=== PATIENT | female | born 2000 | race Caucasian/White ===

== ENCOUNTER 2021-04-16 21:26 | Emergency (ER) | payer OTHER, SELFPAY ==
--- NOTE | ~2021-04-16 | CT_ITS ---
EXAMINATION: CT abdomen pelvis w con INDICATION: Lower abdominal pain TECHNIQUE: Computed tomographic images of the abdomen and pelvis were obtained after the administrati on of 100 cc of Omnipaque 350 intravenous contrast. The dose-length product (DLP) was 686.31 mGy-cm. Automated exposure control and iterative reconstruction technique were employed. COMPARISON: None available FINDINGS: Minimal dependent atelectasis is present in the lung bases. The heart size is normal. The l iver, spleen, pancreas, gallbladder, and adrenal glands are normal. The kidneys are unremarkable. No pathologically enlarged abdominal or pelvic lymph nodes are identified. There is no free intraperiton eal gas or evidence of bowel obstruction. The appendix is normal. There is trace free fluid in the pe lvis, likely physiologic. A moderate volume of colonic stool is present. There is mild fat stranding surrounding near the apex of the urinary bladder. The visualized osseous structures are unremarkable. IMPRESSION: 1. Mild fat stranding near the urinary bladder apex which could reflect cystitis but is nonspecific. Reviewed, dictated and finalized at location A. [facility]ENDER IMPRESSION: 1. Mild fat stranding near the urinary bladder apex which could reflect cystiti s but is nonspecific.
[2021-04-16 21:34] VITALS: BP 134/86; PULSE 88; RESP 16; TEMP 37.1; O2SAT 97
--- NOTE | 2021-04-16 21:54 | ED.ABDPAIN ---
HPI - Abdominal Pain General Chief Complaint: Abdominal Pain Stated Complaint: Abd pain Time Seen by Provider: 04/16/21 21:45 Source: patient and RN notes reviewed Mode of arrival: ambulatory Limitations: no limitations History of Present Illness HPI narrative: This is a 21 year old female who presents for evaluation of mid upper abdominal pain for 2 weeks. Her pain has been intermittent throbbing pain that occurs after eating. Her pain usually last 1-2 hours but tonight it has lasted longer. She was evaluated by her PCP a week ago and she was started on sucralfate and omeprazole. Her pain has not improved. She denies associated nausea, vomiting, or diarrhea. She has not had a bowel movement since Monday but this is not abnormal for her. She is unsure of fever but she states she is hot and cold. She rates her pain as 9/10. Related Data Home Medications Medication Instructions Recorded Confirmed omeprazole 04/16/21 sucralfate 04/16/21 Allergies Allergy/AdvReac Type Severity Reaction Status Date / Time No Known Allergies Allergy Verified 04/16/21 21:40 Review of Systems Review of Systems: All systems reviewed & are unremarkable except as noted in HPI and below PMFSH Past Medical History Medical History (Updated 04/17/21 @ 01:55 by Joi Murphy MD) Patient denies medical problems Surgical History Surgical History (Updated 04/16/21 @ 21:57 by Joi Murphy MD) No pertinent past surgical history Social History Social History (Updated 04/16/21 @ 21:58 by Joi Murphy MD) Smoking status: Never smoker Substance use: never Exam Const: General: no acute distress and alert Orientation/consciousness: patient oriented x3 Eyes: EOM: EOMs intact bilaterally Chest: Chest palpation & inspection: normal inspection of the chest Resp: Effort & Inspection: normal respiratory effort and no retractions Auscultation: clear to auscultation bilaterally Cardio: Rate: regular rate Rhythm: regular rhythm Heart sounds: no murmurs GI: GI Palp: Yes Soft to palpation, Yes Tenderness to palpation present (GI) (epigastric), No Guarding due to palpation present (GI) and No Rigid due to palpation Auscultation: normal bowel sounds Skin: General skin exam: normal color Rashes: no rashes Neuro: General: patient oriented x3, moves all extremities and CN's II-XI intact bilaterally Extrem: General: normal to inspection Psych: Mental Status: mental status grossly normal Affect: normal affect Course Reevaluation(s) Reevaluation #1: PAtient was given GI cocktail on arrival, but she states this did not improve pain. Ct was performed. It shows moderate stool burden. I Discussed cT results with patient. She will talk to PCP about GI referral. She will also start bowel regimen to help constipation. Date: 04/17/21 Time: 01:51 Vital Signs Vital signs: Vital Signs Temperature 98.7 F 04/16/21 21:34 Pulse Rate 88 04/16/21 21:34 Respiratory Rate 16 04/16/21 21:34 Blood Pressure 134/86 04/16/21 21:34 Pulse Oximetry 97 04/16/21 21:34 Temperature 98.7 F 04/16/21 21:34 Pulse Rate 62 04/17/21 01:47 Respiratory Rate 18 04/16/21 23:09 Blood Pressure 134/86 04/16/21 21:34 Pulse Oximetry 100 04/17/21 01:47 MDM - Abdominal Pain Lab Data Attestation: I reviewed the patient's lab results. Result diagrams: 04/16/21 21:58 04/16/21 21:58 Labs: Lab Results 04/16/21 04/16/21 04/16/21 Range/Units 21:58 21:58 22:40 WBC 5.7 (4.5-10.0) K/mm3 RBC 4.40 (4.2-5.4) M/mm3 Hgb 12.9 (12.0-15.0) g/dL Hct 38.8 (37.0-47.0) % MCV 88.2 (80-100) fl MCH 29.3 (26-34) pg MCHC 33.2 (32-36) g/dl RDW 12.1 (11.5-14.5) % Plt Count 233 (150-375) k/mm3 MPV 9.9 (7.4-10.4) fl Immature Gran % (Auto) 0.2 (0-0.5) % Neut % (Auto) 42.5 L (45.5-73.1) % Lymph % (Auto) 45.6 H (18.3-44.2) % M
[2021-04-16 22:05] LABS: Basophils Percent Auto 0.7 % (0.2-1.2); Eosinophils Absolute Auto 0.3 K/mm3 (0-0.3); Eosinophils Percent Auto 4.5 % (0-4.4); Hematocrit 38.8 % (37.0-47.0); Hemoglobin 12.9 g/dL (12.0-15.0); Immature Granulocyte Absolute 0.01 K/mm3 (0.00-0.031); Immature Granulocyte Percent A 0.2 % (0-0.5); Lymphocytes Absolute Auto 2.61 K/mm3 (0.9-3.2); Lymphocytes Percent Auto 45.6 % (18.3-44.2); Mean Corpuscular HGB Conc 33.2 g/dl (32-36); Mean Corpuscular Hemoglobin 29.3 pg (26-34); Mean Corpuscular Volume 88.2 fl (80-100); Mean Platelet Volume 9.9 fl (7.4-10.4); Monocytes Absolute Auto 0.4 K/mm3 (0.1-0.6); Monocytes Percent Auto 6.5 % (2.6-8.5); Neutrophils Absolute Auto 2.4 K/mm3 (1.3-6.7); Neutrophils Percent Auto 42.5 % (45.5-73.1); Platelet Count Result 233 k/mm3 (150-375); Red Cell Distribution Width 12.1 % (11.5-14.5); White Blood Count 5.7 K/mm3 (4.5-10.0)
[2021-04-16] MEDS: BELLADONNA ALK/PHENOB ELIX 10 ML, MAG HYDROX/ALUMINUM HYD/SIMETH 30 ML, LIDOCAINE HCL 2... PO (22:18)
[2021-04-16] MEDS: PANTOPRAZOLE SODIUM IV 40 MG VIAL IV PUSH (22:18)
[2021-04-16 22:38] LABS: Alanine Aminotransferase 24 U/L (4-35); Albumin Level 4.2 g/dL (3.5-5.1); Alkaline Phosphatase 52 U/L (38-126); Anion Gap 6 mmol/L (8-16); Aspartate Amino Transferase 23 U/L (14-36); Bilirubin,Total 0.2 mg/dL (0.2-1.3); Blood Urea Nitrogen 14 mg/dL (7-17); Calcium 9.5 mg/dL (8.4-10.2); Carbon Dioxide 28 mmol/L (22-30); Chloride 102 mmol/L (98-107); Estimated CRCL calculation 90 ml/min; Estimated Glomerular Filt Rate > 60; Glucose 99 mg/dL (65-110); Lipase 109 U/L (23-300); Potassium 3.7 mmol/L (3.4-5.0); Sodium 136 mmol/L (137-145)
[2021-04-16 22:59] LABS: Add Urine Microscopic? YES; Appearance Urine Cloudy (Clear); Bacteria Urine Trace /hpf; Bilirubin Urine Negative (Negative); Blood Urine Negative (Negative); Color Urine Yellow (Yellow); Glucose Urine UA Negative (Negative); Ketones Urine Negative (Negative); Leukocyte Esterase Ur Negative LEU/UL (Negative); Mucus Urine Heavy /lpf; Nitrate Urine Negative (Negative); Protein Urine Negative (Negative); RBC Urine 0-2 /hpf (0-2); Squamous Epithelial Cell Urine Occasional /hpf (Few); Urobilinogen Urine Negative mg/dL (<2.0); WBC Urine 0-3 /hpf
[2021-04-16 23:03] LABS: Specific Grav Ur 1.034 (1.001-1.035)
[2021-04-16] MEDS: MORPHINE SULFATE (*CRX) 4 MG/ML INJ IV PUSH (23:05)
[2021-04-16] MEDS: ONDANSETRON INJ 4 MG/2 ML VIAL IV PUSH (23:06)
[2021-04-16 23:09] VITALS: RESP 18; O2SAT 100
[2021-04-16 23:41] LABS: Pregnancy On Board Control Positive; Urine Pregnancy Test Negative
[2021-04-17 01:47] VITALS: PULSE 62; O2SAT 100
== END 2021-04-17 02:03 | disposition home or self-care (01) ==
PROVIDERS: Emergency Medicine; Emergency Provider General Practice; PCP Family Medicine
DX: K59.00 Constipation, unspecified (principal); R10.13 Epigastric pain
CPT/HCPCS: 36415; 74177; 80053; 81001; 81025; 83690; 85025; 96374; 96375; 99284; A9270; C9113; J2270; J2405; Q9967

== ENCOUNTER 2021-06-16 10:24 | Outpatient (CLI) | payer OTHER, SELFPAY ==
[2021-06-16 12:05] LABS: Free T4 Free Thyroxine 0.97 ng/mL (0.78-2.19)
== END 2021-06-16 10:25 | disposition home or self-care (01) ==
PROVIDERS: PCP Family Medicine; Visit Provider Internal Medicine Gastroenterology
DX: K59.00 Constipation, unspecified (principal)
CPT/HCPCS: 36415; 84439; 84443